=== PATIENT | female | born 1955 | race Caucasian/White ===

== ENCOUNTER 2018-08-18 14:56 | Emergency (ER) | payer OTHER ==
[2018-08-18] MEDS: SODIUM CHLORIDE 0.9% FLUSH 10 ML SOL IV PRN ×2 (15:07→16:30)
[2018-08-18 15:28] LABS: INR 0.93 (0.86-1.12)
[2018-08-18] MEDS ORDERED: HYDRALAZINE HYDROCHLORIDE 20 MG/ML SOL IV SCH (15:30)
[2018-08-18 15:35] LABS: ALBUMIN 4.3 gm/dl (3.4-5.0); BILIRUBIN,TOTAL 0.5 mg/dl (0.2-1.0); CALCIUM 10.2 mg/dl (8.5-10.1); CARBON DIOXIDE 31.6 mEq/L (21-32); CREATININE 0.81 mg/dl (0.60-1.00); POTASSIUM 4.2 mMol/L (3.5-5.1); TOTAL PROTEIN 8.7 gm/dl (6.4-8.2)
[2018-08-18 15:39] LABS: BASOPHILS % (AUTO) 1 % (0-3); EOSINOPHILS % (AUTO) 1 % (0-9); HEMATOCRIT 52 % (35-47); LYMPHOCYTES % (AUTO) 21.6 % (10-50); MEAN CORPUSCULAR HEMOGLOBIN 30.4 pg (27.0-32.0); MEAN CORPUSCULAR HGB CONC 32.8 gm/dl (32.0-36.0); MEAN CORPUSCULAR VOLUME 93 fL (81-99); MONOCYTES % (AUTO) 4.3 % (0-12)
[2018-08-18] MEDS ORDERED: HYDRALAZINE HYDROCHLORIDE 20 MG/ML SOL ONE (15:49)
[2018-08-18 15:50] LABS: APPEARANCE,URINE Slightly Cloudy; BILIRUBIN,URINE NEGATIVE (NEGATIVE); COLOR,URINE Yellow; GLUCOSE, URINE (UA) NEGATIVE (NEGATIVE); KETONES,URINE NEGATIVE (NEGATIVE); LEUKOCYTE ESTERASE ,URINE 2+ (NEGATIVE); NITRATE,URINE NEGATIVE (NEGATIVE); OCCULT BLOOD,URINE NEGATIVE (NEG-TRACE); PH,URINE 8.5; UROBILINOGEN,URINE 0.2 (0.2-1.0 EU)
[2018-08-18 15:56] LABS: THYROID STIMULATING HORMONE 1.715 uIU/ml (0.358-3.740); TROP I < 0.017 ng/ml (0.000-0.056)
[2018-08-18 16:00] LABS: CRYSTALS NEGATIVE (0-3 AVE/HPF); RBC,URINE NEG (0-3AV/HPF); WBC,URINE 18-22 (0-5AV/HPF)
[2018-08-18 16:01] LABS: BACTERIA NEGATIVE (< 1+)
[2018-08-18 17:02] VITALS: RESP 18
[2018-08-18 17:08] VITALS: TEMP 98
[2018-08-18 17:33] VITALS: BP 178/95; PULSE 72; O2SAT 98
== END 2018-08-18 17:36 | disposition home or self-care (01) | DRG 305 ==
LOC: ED 14:56
DX: I10 Essential (primary) hypertension (principal); R42 Dizziness and giddiness; R53.1 Weakness
CPT/HCPCS: 70450; 70551; 80053; 81001; 82140; 82962; 84443; 84484; 85025; 85610; 85730; 87088; 93005; 96374; 99284; 99291; J0360